=== PATIENT | male | born 1945 | race Caucasian/White ===

== ENCOUNTER → 2020-09-21 15:51 | Outpatient (CLI) | payer MEDICARE, SELFPAY ==
--- NOTE | 2020-09-21 | DI.MRI.S_ITS ---
PROCEDURE: MR LUMBAR SPINE WO CON INDICATIONS: Spinal stenosis, lumbar region with neurogenic claudication TECHNIQUE: Noncontrast sagittal T1 spin echo and T2 fast echo, sagittal STIR, axial T1 and T2 fast spin echo through the lumbar spine. In cases with scoliosis, additional coronal T2 fast spin echo may be performed. COMPARISON: [facility], MR, L-SPINE WITHOUT CONTRAST, 08/30/2014, 13:09. FINDINGS: Image quality: Excellent. Alignment and Curvature: Straightening of the normal lordotic curvature. Grade 1 retrolisthesis of L3 on L4 and L4 on L5. Bone Marrow: No fracture. Multilevel degenerative endplate sclerosis and spurring. Diffuse facet arthropathy. Scattered small Schmorl's nodes. Spinal Cord: Conus medullaris terminates at the L1 level. Visualized cord demonstrates normal signal and size. Paraspinous Soft Tissues: No paravertebral masses. T12-L1: Normal appearance. L1-L2: Mild canal narrowing. Partial effacement of both lateral recesses with bilaterally symmetric appearance. Mild right foraminal stenosis. Moderate left foraminal narrowing. There is slight interval progression on the left since 08/30/14 L2-L3: Severe canal stenosis. Near complete effacement of both lateral recesses with bilaterally symmetric appearance. Mild right foraminal stenosis. Severe left foraminal narrowing with nerve root compression, which appears progressed since the prior study L3-L4: Moderate canal stenosis is slightly progressed since the prior study. Near complete effacement of both lateral recesses with bilaterally symmetric appearance. Mild left foraminal narrowing. Severe right foraminal stenosis which is slightly progressed since the prior study. L4-L5: Moderate canal narrowing is present. Near complete effacement of both lateral recesses with bilaterally symmetric appearance. Severe left foraminal stenosis with slight nerve root compression. This appears progressed since the prior study. Mild to moderate right foraminal narrowing which is unchanged. L5-S1: Mild canal narrowing. Partial effacement of both lateral recesses with bilaterally symmetric appearance. Severe bilateral, left greater than right, foraminal stenosis with nerve root compression. No definite interval change. IMPRESSION: Interval progression in lumbar spondylosis and facet arthropathy since 08/30/14 as detailed above by spinal level. Multilevel spondylolisthesis as above. Dictated by: John Sherman M.D. on 09/21/2020 at 16:40 Approved by: John Sherman M.D. on 09/21/2020 at 16:53
== END ==
PROVIDERS: PCP Internal Medicine; Referring Provider Internal Medicine; Visit Provider Internal Medicine
DX: M48.062 Spinal stenosis, lumbar region with neurogenic claudication (principal); M47.816 Spondylosis without myelopathy or radiculopathy, lumbar region; M43.16 Spondylolisthesis, lumbar region
CPT/HCPCS: 72148

== ENCOUNTER → 2020-10-06 18:45 | Outpatient (ROUT) | payer MEDICARE, SELFPAY ==
[2020-10-06 19:19] LABS: Aspartate Aminotransferase 39 IU/L (17-59); BUN Creatinine Ratio 20.7 (6-22); Blood Urea Nitrogen 18 mg/dL (9-20); Calcium 9.1 mg/dL (8.4-10.2); Carbon Dioxide 31 mmol/L (22-32); Chloride 104 mmol/L (98-107); Cholesterol 173 mg/dL (140-199); Estimated Glomerular Filt Rate > 60.0 mL/min (>60); Glucose 99 mg/dL (80-110); HDL Cholesterol 41 mg/dL (40-60); HEMOLYSIS < 15 (0-50); LDL Cholesterol Calculated 109 mg/dL (<100); Potassium 4.2 mmol/L (3.4-5.1); Sodium 138 mmol/L (137-145); Triglycerides 116 mg/dL (35-150)
[2020-10-10 06:07] LABS: PSA Free % 19.3 % (.); PSA, Total 4.1 ng/mL (0.0-4.0)
== END ==
PROVIDERS: PCP Internal Medicine; Visit Provider Internal Medicine
DX: R97.20 Elevated prostate specific antigen [PSA] (principal); E78.2 Mixed hyperlipidemia
CPT/HCPCS: 80048; 80061; 84153; 84154; 84450

== ENCOUNTER → 2022-02-28 08:38 | Outpatient (CLI) | payer MEDICARE, SELFPAY ==
[2022-02-28 09:05] LABS: Hematocrit 43.2 % (41-53); Hemoglobin 14.4 g/dL (13.5-17.5); Mean Corpuscular HGB Conc 33.4 % (30-36); Mean Corpuscular Hemoglobin 30.4 PG (26-34); Mean Corpuscular Volume 91.3 fL (80-100); Platelet Count 315 X10^3/uL (150-400); Red Blood Cell Count 4.74 X10^6/uL (4.5-5.9); Red Cell Distribution Width 13.8 % (11.6-14.8); White Blood Cell Count 7.1 X10^3/uL (4.5-11.0)
[2022-02-28 09:37] LABS: Alanine Aminotransferase 49 IU/L (<50); Albumin 4.1 g/dL (3.5-5.0); Albumin Globulin Ratio 1.3 (1.0-2.8); Alkaline Phosphatase 45 U/L (38-126); Aspartate Aminotransferase 47 IU/L (17-59); BUN Creatinine Ratio 18.7 (6-22); Blood Urea Nitrogen 17 mg/dL (9-20); Calcium 8.5 mg/dL (8.4-10.2); Carbon Dioxide 28 mmol/L (22-32); Chloride 104 mmol/L (98-107); Cholesterol 156 mg/dL (140-199); Estimated Glomerular Filt Rate > 60 mL/min (>60); Globulin 3.2 g/dL (1.7-4.1); Glucose 103 mg/dL (80-110); HDL Cholesterol 48 mg/dL (40-60); HEMOLYSIS < 15 (0-50); LDL Cholesterol Calculated 95 mg/dL (<100); Potassium 4.4 mmol/L (3.4-5.1); Sodium 140 mmol/L (137-145); Total Protein 7.3 g/dL (6.3-8.2); Triglycerides 65 mg/dL (35-150)
[2022-02-28 10:04] LABS: TSH w/ Reflex to FT4 0.77 uIU/mL (0.47-4.68)
[2022-03-01 08:52] LABS: PSA Free % 18.7 % (.); PSA, Total 5.4 ng/mL (0.0-4.0)
== END ==
PROVIDERS: PCP Internal Medicine; Referring Provider Internal Medicine; Visit Provider Internal Medicine
DX: E78.2 Mixed hyperlipidemia (principal); I10 Essential (primary) hypertension; N40.0 Benign prostatic hyperplasia without lower urinary tract symptoms
CPT/HCPCS: 36415; 80053; 80061; 84153; 84154; 84443; 85027

== ENCOUNTER → 2022-08-02 14:15 | Outpatient (CLI) | payer OTHER, SELFPAY ==
[2022-08-03 09:30] LABS: PSA Free % 16.6 % (.); PSA, Total 4.1 ng/mL (0.0-4.0)
== END ==
PROVIDERS: PCP Internal Medicine; Referring Provider Internal Medicine; Visit Provider Internal Medicine
DX: R97.20 Elevated prostate specific antigen [PSA] (principal)
CPT/HCPCS: 36415; 84153; 84154

== ENCOUNTER → 2022-10-14 13:20 | Outpatient (CLI) | payer MEDICARE, SELFPAY ==
--- NOTE | 2022-10-14 13:21 | DI.RAD.S_ITS ---
PROCEDURE: XR KNEE RT 3V INDICATIONS: right knee pain TECHNIQUE: 3 views of the knee were acquired. COMPARISON: None. FINDINGS: Bones: No fractures or dislocations. Gdwk-cx-saukxpgo tricompartmental osteoarthritis is seen most notably in medial femoral tibial compartment. No patellar subluxation. No suspicious bony lesions. Soft tissues: Small suprapatellar joint effusion is seen. Small calcification is noted within suprapatellar joint space measures 8 mm in size and may represent loose body.. No other suspicious soft tissue calcifications. IMPRESSION: 1. Irtt-bd-nckpsssl tricompartmental osteoarthritis. No fracture or dislocation. 2. Small joint effusion and suggestion of loose body as above. Dictated by: Freddie Tamayo M.D. on 10/14/2022 at 15:12 Approved by: Freddie Tamayo M.D. on 10/14/2022 at 15:12
--- NOTE | 2022-10-14 13:21 | DI.RAD.S_ITS ---
PROCEDURE: XR KNEE LT 3V INDICATIONS: left knee pain TECHNIQUE: 3 views of the knee were acquired. COMPARISON: None. FINDINGS: Bones: No fractures or dislocations. Xhzg-bt-musvgydx tricompartmental osteoarthritis is seen most notably in medial femoral tibial compartment. Suggestion of small osteochondral injury involving weight-bearing portion of medial femoral condyle is seen. No suspicious bony lesions. Soft tissues: there is small to moderate amount of suprapatella joint effusion with possible loose body within suprapatellar joint space measures 1.4 x 0.9 cm in size. IMPRESSION: Xccq-bq-klisdzmn tricompartmental osteoarthritis in left knee most notably in medial femoral tibial compartment with suggestion of osteochondral injury involving weight-bearing portion of medial femoral condyle. Possible loose body in suprapatellar joint is seen with small to moderate suprapatellar joint effusion. Dictated by: Freddie Tamayo M.D. on 10/14/2022 at 15:13 Approved by: Freddie Tamayo M.D. on 10/14/2022 at 15:19
== END ==
PROVIDERS: PCP Internal Medicine; Referring Provider Internal Medicine; Visit Provider Internal Medicine
DX: M17.0 Bilateral primary osteoarthritis of knee (principal); M25.461 Effusion, right knee; M25.462 Effusion, left knee
CPT/HCPCS: 73562

== ENCOUNTER → 2023-05-08 13:48 | Outpatient (CLI) | payer OTHER, SELFPAY ==
--- NOTE | 2023-05-08 13:50 | DI.RAD.S_ITS ---
PROCEDURE: XR FOOT RT MIN 3V INDICATIONS: pain/disc TECHNIQUE: 3 views of the foot were acquired. COMPARISON: None. FINDINGS: Bones: No acute fractures or dislocations. Moderate degenerative changes of the right 1st metatarsophalangeal joint. Mild polyarticular degenerative changes of the interphalangeal joints of the right foot. No suspicious periosteal reaction. No definite juxta-articular lucencies. No suspicious bony lesions. Soft tissues: No tibiotalar joint effusion. Achilles tendon appears normal. IMPRESSION: Right foot without acute fracture or malalignment. Moderate degenerative changes of the right 1st metatarsophalangeal joint. If there are persistent symptoms or clinical suspicion for pathology, then repeat radiographs or advanced imaging (CT or MRI) may be considered for further evaluation. Dictated by: Manan Steele M.D. on 05/08/2023 at 15:15 Approved by: Manan Steele M.D. on 05/08/2023 at 15:19
== END ==
PROVIDERS: PCP Internal Medicine; Referring Provider Internal Medicine; Visit Provider Internal Medicine
DX: M79.671 Pain in right foot (principal)
CPT/HCPCS: 73630

== ENCOUNTER → 2023-05-09 11:09 | Outpatient (CLI) | payer OTHER, SELFPAY ==
[2023-05-09 13:02] LABS: Aspartate Aminotransferase 29 IU/L (17-59); BUN Creatinine Ratio 16.3 (6-22); Blood Urea Nitrogen 16 mg/dL (9-20); Calcium 9.7 mg/dL (8.4-10.2); Carbon Dioxide 30 mmol/L (22-32); Chloride 101 mmol/L (98-107); Cholesterol 171 mg/dL (140-199); Estimated Glomerular Filt Rate > 60 mL/min (>60); Glucose 113 mg/dL (80-110); HDL Cholesterol 42 mg/dL (40-60); HEMOLYSIS < 15 (0-50); LDL Cholesterol Calculated 107 mg/dL (<100); Potassium 5.1 mmol/L (3.4-5.1); Sodium 139 mmol/L (137-145); Triglycerides 112 mg/dL (35-150)
[2023-05-09 13:30] LABS: Prostate Specific Antigen 3.46 ng/mL (0.10-4.00)
== END ==
PROVIDERS: PCP Internal Medicine; Referring Provider Internal Medicine; Visit Provider Internal Medicine
DX: E78.2 Mixed hyperlipidemia (principal); R97.20 Elevated prostate specific antigen [PSA]; I10 Essential (primary) hypertension
CPT/HCPCS: 36415; 80048; 80061; 84153; 84450

== ENCOUNTER → 2024-08-30 10:48 | Outpatient (CLI) | payer MEDICARE, SELFPAY ==
[2024-08-30 13:10] LABS: Aspartate Aminotransferase 38 IU/L (17-59); BUN Creatinine Ratio 25.5 (6-22); Blood Urea Nitrogen 28 mg/dL (9-20); Calcium 9.5 mg/dL (8.4-10.2); Carbon Dioxide 26 mmol/L (22-32); Chloride 104 mmol/L (98-107); Cholesterol 199 mg/dL (140-199); Estimated Glomerular Filt Rate > 60 mL/min (>60); Glucose 104 mg/dL (80-110); HDL Cholesterol 47 mg/dL (40-60); HEMOLYSIS < 15 (0-50); LDL Cholesterol Calculated 129 mg/dL (<100); Potassium 4.7 mmol/L (3.4-5.1); Sodium 139 mmol/L (137-145); Triglycerides 117 mg/dL (35-150)
[2024-08-30 13:37] LABS: Prostate Specific Antigen 4.59 ng/mL (0.10-4.00)
== END ==
LOC: LAB 10:50
PROVIDERS: PCP Internal Medicine; Referring Provider Internal Medicine; Visit Provider Internal Medicine
DX: I10 Essential (primary) hypertension (principal); R97.20 Elevated prostate specific antigen [PSA]; E78.2 Mixed hyperlipidemia
CPT/HCPCS: 36415; 80048; 80061; 84153; 84450

== ENCOUNTER → 2024-10-28 11:00 | Outpatient (CLI) | payer MEDICARE, SELFPAY ==
--- NOTE | 2024-10-28 11:01 | DI.MRI.S_ITS ---
PROCEDURE: MR KNEE LT WO CON INDICATIONS: r/o loose body left knee TECHNIQUE: Noncontrast sagittal PD fast spin echo and T2 fast spin echo with fat saturation, sagittal 3-D FLASH with fat saturation; coronal T1 spin echo and PD fast spin echo with fat saturation, and axial PD fast spin echo with fat saturation through the knee. COMPARISON: None. FINDINGS: Image quality: Excellent. Menisci: In the medial meniscus, t there is near complete maceration of the posterior horn, extending to the medial meniscus body. Mild extrusion of the residual medial meniscus body, with a small meniscus flap extending into the superior gutter. The lateral meniscus is unremarkable. Cruciate ligaments: Severe mucoid degeneration of the ACL. The PCL is intact. Medial structures: The medial collateral ligament appears intact. The posterior oblique ligament, semimembranosus tendon insertions, oblique popliteal ligament, and meniscocapsular junction appear intact. Visualized portions of the pes anserinus tendons appear normal. No abnormal bursal fluid. Lateral structures: The lateral collateral ligament, long and short heads of the biceps femoris tendon appear intact. The popliteus tendon appears normal; the popliteofibular ligament appears intact. The posterosuperior and anteroinferior popliteomeniscal fascicles appear intact. The arcuate and fabellofibular ligaments appear intact, on either side of the lateral inferior geniculate artery. Iliotibial band appears normal. Anterior structures: The distal quadriceps tendon is unremarkable. Mild tendinosis of the proximal patellar tendon. Mild Hoffa's fat pad edema. Alignment of the patellofemoral compartment is well maintained. The medial and lateral patellofemoral ligaments are intact. Bones and cartilage: There is mild chondral irregularity in the median ridge of the patella. Multifocal high-grade chondral fissuring of the central trochlea. In the medial compartment, there is complete chondral denudation in the weight-bearing portion of the medial femoral condyle, and of the medial tibial plateau, with associated mild subchondral marrow edema. In the lateral compartment, there is mild chondral thinning and mild chondral irregularity of the weight-bearing portion of the lateral femoral condyle and of the lateral tibial plateau. Mild subchondral cystic changes at the tibial eminence, reactive Joint space: Moderate knee effusion. 1.8 cm loose body in the suprapatellar recess, partially visualized. Large popliteal cyst. IMPRESSION: 1. Extensive tear of the medial meniscus with a meniscus flap. 2. Severe mucoid degeneration of the ACL. 3. Severe, medial compartment predominant chondrosis with mild subchondral marrow edema. 4. Moderate knee effusion with 1.8 cm loose body in the suprapatellar recess. 5. Large popliteal cyst. Dictated by: Alida Vail M.D. on 10/28/2024 at 13:59 Approved by: Alida Vail M.D. on 10/28/2024 at 14:08
== END ==
LOC: MRI 11:00
PROVIDERS: PCP Internal Medicine; Referring Provider Orthopaedic Surgery; Visit Provider Orthopaedic Surgery
DX: S83.242A Other tear of medial meniscus, current injury, left knee, initial encounter (principal); M23.42 Loose body in knee, left knee; M25.462 Effusion, left knee; M71.21 Synovial cyst of popliteal space [Baker], right knee; M94.262 Chondromalacia, left knee
CPT/HCPCS: 73721

== ENCOUNTER → 2024-11-17 09:17 | Outpatient (CLI) | payer MEDICARE, SELFPAY ==
--- NOTE | 2024-11-17 09:22 | EKG_ITS ---
[address] [address] Test Date: 2024-11-17 Pat Name: Diego Godinez Department: [facility] Room: Gender: Male First Leveler: KRISTA : 1945 Requested By: Order Number: [id number] Reading MD: Trell Thomson MD Measurements Intervals Switchback Rate: 57 P: 56 CO: 176 QRS: -27 QRSD: 108 T: 14 QT: 434 QTc: 422 Interpretive Statements Sinus bradycardia with premature atrial complexes Minimal voltage criteria for LVH, may be normal variant ( R in aVL ) Electronically Signed On 11-18-2024 7:39:38 PDT by Trell Thomson MD
[2024-11-17 10:03] LABS: Add Manual Diff / Slide Review NO; Basophils Absolute Auto 100 /uL (0-100); Basophils Percent Auto 1.3 % (0-2); Eosinophils Absolute Auto 400 /uL (0-450); Eosinophils Percent Auto 6.3 % (2-4); Hematocrit 43.9 % (41-53); Hemoglobin 14.9 g/dL (13.5-17.5); Lymphocytes Absolute Auto 1400 /uL (1100-4500); Lymphocytes Percent Auto 25.2 % (25-40); Mean Corpuscular HGB Conc 34.1 % (30-36); Mean Corpuscular Hemoglobin 31.6 PG (26-34); Mean Corpuscular Volume 92.9 fL (80-100); Monocytes Absolute Auto 500 /uL (0-900); Monocytes Percent Auto 8.8 % (3-14); Neutrophils Absolute Auto 3300 /uL (1500-7000); Neutrophils Percent Auto 58.4 % (50-75); Platelet Count 330 X10^3/uL (150-400); Red Blood Cell Count 4.73 X10^6/uL (4.5-5.9); Red Cell Distribution Width 13.5 % (11.6-14.8); White Blood Cell Count 5.7 X10^3/uL (4.5-11.0)
[2024-11-17 10:07] LABS: Appearance Urine UA CLEAR; Bilirubin Urine UA NEGATIVE (NEGATIVE); Color Urine UA YELLOW; Glucose Urine UA NEGATIVE (Negative); Ketones Urine UA NEGATIVE (NEGATIVE); Leukocyte Esterase Urine UA NEGATIVE (NEGATIVE); Nitrite Urine UA NEGATIVE (Negative); Occult Blood Urine UA NEGATIVE (Negative); Protein Urine UA NEGATIVE (Negative); Urobilinogen Urine UA 0.2 E.U./dL (0.2)
[2024-11-17 10:29] LABS: Bacteria Urine None Seen; Culture Indicated Urine Cult Not Indicated; Hemoglobin A1C% w Est Avg Glu 5.3 % (4.0-6.0); RBC Urine None Seen (0-5/HPF); Squamous Epithelial Cell Urine None Seen (0-5/HPF); Urine Volume 10mL (spun); WBC Urine None Seen (0-5/HPF)
[2024-11-17 10:33] LABS: BUN Creatinine Ratio 27.5 (6-22); Blood Urea Nitrogen 25 mg/dL (9-20); Calcium 9.8 mg/dL (8.4-10.2); Carbon Dioxide 24 mmol/L (22-32); Chloride 104 mmol/L (98-107); Estimated Glomerular Filt Rate > 60 mL/min (>60); Glucose 103 mg/dL (80-110); HEMOLYSIS < 15 (0-50); Potassium 4.3 mmol/L (3.4-5.1); Sodium 140 mmol/L (137-145)
== END ==
PROVIDERS: PCP Internal Medicine; Referring Provider Orthopaedic Surgery; Visit Provider Orthopaedic Surgery
DX: Z01.818 Encounter for other preprocedural examination (principal); R73.9 Hyperglycemia, unspecified; Z01.812 Encounter for preprocedural laboratory examination; N39.0 Urinary tract infection, site not specified
CPT/HCPCS: 36415; 80048; 81001; 83036; 85025; 93005; 93010